=== PATIENT | male | born 1980 | race Caucasian/White ===

== ENCOUNTER 2019-01-25 10:07 | Inpatient (IN) | payer MEDICAID ==
[~2019-01-25] VITALS: Ht 180.3 cm; Wt 104.2 kg
[2019-01-25] VITALS (16 sets, daily range): BP systolic 138–155; BP diastolic 80–97
[~2019-01-25 10:07] MED LIST: NOCURR; SULF1TAB42 PO; VICOT PO
[2019-01-25 12:10] LABS: BASOPHILS % (AUTO) 0.5 % (0.0-2.0); EOSINOPHILS % (AUTO) 1.3 % (1.0-6.0); LYMPHOCYTES # (AUTO) 2.8 K/uL (1.0-4.8); LYMPHOCYTES % (AUTO) 25.8 % (22.0-44.0); MEAN CORPUSCULAR HEMOGLOBIN 28.6 pg (26.0-34.0); MEAN CORPUSCULAR HGB CONC 33.8 G/dL (31.0-37.0); MEAN CORPUSCULAR VOLUME 85 fL (80-100); MONOCYTES # (AUTO) 0.5 K/uL (0.1-1.0); MONOCYTES % (AUTO) 4.7 % (2.0-9.0); NEUTROPHILS # (AUTO) 7.2 K/uL (1.8-7.7); NEUTROPHILS % (AUTO) 67.7 % (40.0-70.0); PLATELET COUNT (AUTO) 330 K/uL (150-450); RED BLOOD CELL COUNT(AUTO) 2.04 MIL/uL (4.50-5.90)
[2019-01-25 12:19] LABS: HEMOGLOBIN 5.8 g/dL (13.5-17.5)
[2019-01-25 12:20] LABS: HEMATOCRIT 17.3 % (41-53)
[2019-01-25 12:25] LABS: ALBUMIN 1.1 g/dL (3.4-5.0); BILIRUBIN,TOTAL 0.3 mg/dL (0.1-1.0); CREATININE 15.53 mg/dL (0.60-1.30); TOTAL PROTEIN, SERUM 7.2 g/dL (6.4-8.2)
[2019-01-25 12:27] LABS: POTASSIUM 2.8 mmol/L (3.5-5.1)
[2019-01-25 12:28] LABS: APPEARANCE,URINE CLEAR (CLEAR); BILIRUBIN,URINE NEGATIVE (NEGATIVE); GLUCOSE, URINE (UA) 250 mg/dL (NEGATIVE); KETONES,URINE NEGATIVE (NEGATIVE); LEUKOCYTE ESTERASE ,URINE NEGATIVE (NEGATIVE); NITRATE,URINE NEGATIVE (NEGATIVE); OCCULT BLOOD,URINE SMALL (NEGATIVE); PROTEIN,URINE SEE CONFIRM (NEGATIVE); UROBILINOGEN,URINE 0.2 mg/dL (<=1.0)
[2019-01-25 12:48] LABS: SULFOSALICYLIC ACID,URINE 3+ (Negative)
[2019-01-25 12:49] LABS: BACTERIA,URINE Rare /HPF (None Seen); RBC,URINE 0-2 /HPF (0-2); SQUAMOUS EPITHELIAL CELL,UR Rare /LPF (None Seen)
[2019-01-25] MEDS ORDERED: SODIUM CHLORIDE 0.9% 1,000 ML IV ONE (13:15)
[2019-01-25 13:29] LABS: PROTHROMBIN TIME 10.4 SEC (9.4-11.6)
[2019-01-25] MEDS ORDERED: ONDANSETRON HCL 4 MG/2 ML VIAL IVP PRN (14:00)
[2019-01-25] MEDS ORDERED: 0.9% SODIUM CHLORIDE 10 ML SYRINGE IVP PRN (14:00)
[2019-01-25] MEDS ORDERED: ACETAMINOPHEN 325 MG TABLET PO PRN ×2 (14:00→20:15)
[2019-01-25] MEDS ORDERED: PANTOPRAZOLE SODIUM 80 MG in SODIUM CHLORIDE 0.9% 100 ML IV SCH (14:15)
[2019-01-25] MEDS ORDERED: POTASSIUM CHLORIDE 20 MEQ ER TABLET PO ONE (14:15)
[2019-01-25 15:12] LABS: AMPHET/METH SCREEN,URINE NEGATIVE (NEGATIVE); BARBITURATE SCREEN, URINE NEGATIVE (NEGATIVE); BENZODIAZEPINES SCREEN,URINE NEGATIVE (NEGATIVE); CANNABINOID SCREEN,URINE NEGATIVE (NEGATIVE); COCAINE SCREEN,URINE NEGATIVE (NEGATIVE); METHADONE SCREEN, URINE NEGATIVE (NEGATIVE); OPIATE SCREEN,URINE POSITIVE (NEGATIVE); PHENCYCLIDINE SCREEN,URINE NEGATIVE (NEGATIVE)
[2019-01-25 20:43] LABS: BASOPHILS % (AUTO) 0.7 % (0.0-2.0); EOSINOPHILS % (AUTO) 1.6 % (1.0-6.0); HEMATOCRIT 25.5 % (41-53); HEMOGLOBIN 8.6 g/dL (13.5-17.5); LYMPHOCYTES # (AUTO) 3.2 K/uL (1.0-4.8); LYMPHOCYTES % (AUTO) 35.3 % (22.0-44.0); MEAN CORPUSCULAR HEMOGLOBIN 29.3 pg (26.0-34.0); MEAN CORPUSCULAR HGB CONC 33.7 G/dL (31.0-37.0); MEAN CORPUSCULAR VOLUME 87 fL (80-100); MONOCYTES # (AUTO) 0.4 K/uL (0.1-1.0); MONOCYTES % (AUTO) 4.1 % (2.0-9.0); NEUTROPHILS # (AUTO) 5.3 K/uL (1.8-7.7); NEUTROPHILS % (AUTO) 58.3 % (40.0-70.0); PLATELET COUNT (AUTO) 315 K/uL (150-450); RED BLOOD CELL COUNT(AUTO) 2.94 MIL/uL (4.50-5.90); RED CELL DISTRIBUTION WIDTH 17.2 % (11.5-14.5)
[2019-01-25] MEDS: PANTOPRAZOLE SODIUM 40 MG/VIAL IVP SCH (20:46)
[2019-01-25] MEDS: DOCUSATE SODIUM 100 MG CAPSULE PO SCH (20:46)
[2019-01-25] MEDS: CefTRIAXone 1 GM/DEXTROSE 50 ML IV SCH (20:46)
[2019-01-25 21:09] LABS: CREATININE 15.23 mg/dL (0.60-1.30); MAGNESIUM 1.8 mg/dL (1.80-2.40); POTASSIUM 4.3 mmol/L (3.5-5.1)
[2019-01-26 04:25] VITALS: BP 145/87
[2019-01-26 05:58] LABS: BASOPHILS % (AUTO) 0.9 % (0.0-2.0); EOSINOPHILS % (AUTO) 1.6 % (1.0-6.0); HEMOGLOBIN 7.7 g/dL (13.5-17.5); LYMPHOCYTES # (AUTO) 3.1 K/uL (1.0-4.8); LYMPHOCYTES % (AUTO) 30.1 % (22.0-44.0); MEAN CORPUSCULAR HEMOGLOBIN 28.7 pg (26.0-34.0); MEAN CORPUSCULAR HGB CONC 33.6 G/dL (31.0-37.0); MEAN CORPUSCULAR VOLUME 86 fL (80-100); MONOCYTES # (AUTO) 0.5 K/uL (0.1-1.0); MONOCYTES % (AUTO) 4.8 % (2.0-9.0); NEUTROPHILS # (AUTO) 6.4 K/uL (1.8-7.7); NEUTROPHILS % (AUTO) 62.6 % (40.0-70.0); PLATELET COUNT (AUTO) 314 K/uL (150-450); RED BLOOD CELL COUNT(AUTO) 2.69 MIL/uL (4.50-5.90); RED CELL DISTRIBUTION WIDTH 16.9 % (11.5-14.5)
[2019-01-26 06:26] LABS: CREATININE 14.43 mg/dL (0.60-1.30); POTASSIUM 3.5 mmol/L (3.5-5.1)
[2019-01-26 07:08] LABS: CALCIUM, TOTAL 5.9 mg/dL (8.8-10.5)
[2019-01-26 07:21] VITALS: BP 137/77
[2019-01-26] MEDS ORDERED: CALCIUM GLUCONATE 1,000 MG in DEXTROSE 5%-WATER 50 ML IV ONE (07:45)
[2019-01-26] MEDS: DOCUSATE SODIUM 100 MG CAPSULE PO SCH ×2 (08:55→21:39)
[2019-01-26] MEDS: PANTOPRAZOLE SODIUM 40 MG/VIAL IVP SCH ×2 (08:58→21:40)
[2019-01-26] MEDS: EPOETIN ALFA 10,000 UNITS/ML VIAL SQ SCH (08:58)
[2019-01-26] MEDS ORDERED: EPOETIN ALFA 10,000 UNITS/ML VIAL SQ SCH (09:00)
[2019-01-26 11:06] VITALS: BP 132/78
[2019-01-26] MEDS ORDERED: SODIUM CHLORIDE 0.9% 1,000 ML IV ONE ×2 (11:55→12:15)
[2019-01-26] MEDS: VITAMIN B COMP/VIT C/FOLIC ACID CAPSULE PO SCH (14:13)
[2019-01-26 15:01] VITALS: BP 144/82
[2019-01-26 17:31] LABS: HEMATOCRIT 21.3 % (41-53); HEMOGLOBIN 7.2 g/dL (13.5-17.5); LYMPHOCYTES # (AUTO) 2.7 K/uL (1.0-4.8); LYMPHOCYTES % (AUTO) 36.2 % (22.0-44.0); MEAN CORPUSCULAR HEMOGLOBIN 28.5 pg (26.0-34.0); MEAN CORPUSCULAR HGB CONC 33.6 G/dL (31.0-37.0); MEAN CORPUSCULAR VOLUME 85 fL (80-100); MONOCYTES # (AUTO) 0.3 K/uL (0.1-1.0); MONOCYTES % (AUTO) 4.2 % (2.0-9.0); NEUTROPHILS # (AUTO) 4.2 K/uL (1.8-7.7); NEUTROPHILS % (AUTO) 56.6 % (40.0-70.0); PLATELET COUNT (AUTO) 312 K/uL (150-450); RED BLOOD CELL COUNT(AUTO) 2.52 MIL/uL (4.50-5.90); RED CELL DISTRIBUTION WIDTH 16.8 % (11.5-14.5)
[2019-01-26] MEDS: SODIUM BICARBONATE 100 MEQ in SODIUM CHLORIDE 0.45% 1,000 ML IV SCH (18:09)
[2019-01-26] MEDS: CALCIUM ACETATE 667 MG CAPSULE PO SCH (18:09)
[2019-01-26 18:27] LABS: CALCIUM, TOTAL 6.2 mg/dL (8.8-10.5); CREATININE 14.1 mg/dL (0.60-1.30); MAGNESIUM 1.7 mg/dL (1.80-2.40); POTASSIUM 3.5 mmol/L (3.5-5.1)
[2019-01-26 18:36] LABS: PHOSPHORUS 12.4 mg/dL (2.5-4.9)
[2019-01-26 20:03] VITALS: BP 143/86
[2019-01-26] MEDS: SULFAMETHOX/TRIMETH DS 800-160 MG/TABLET PO SCH (21:39)
[2019-01-26] MEDS: CefTRIAXone 1 GM/DEXTROSE 50 ML IV SCH (21:40)
[2019-01-27 00:22] VITALS: BP 152/80
[2019-01-27 04:53] VITALS: BP 141/88
[2019-01-27 05:52] LABS: BASOPHILS % (AUTO) 0.9 % (0.0-2.0); EOSINOPHILS % (AUTO) 2.6 % (1.0-6.0); HEMOGLOBIN 7.7 g/dL (13.5-17.5); LYMPHOCYTES # (AUTO) 2.9 K/uL (1.0-4.8); LYMPHOCYTES % (AUTO) 36.9 % (22.0-44.0); MEAN CORPUSCULAR HEMOGLOBIN 28.9 pg (26.0-34.0); MEAN CORPUSCULAR HGB CONC 33.7 G/dL (31.0-37.0); MEAN CORPUSCULAR VOLUME 86 fL (80-100); MONOCYTES # (AUTO) 0.4 K/uL (0.1-1.0); MONOCYTES % (AUTO) 5.1 % (2.0-9.0); NEUTROPHILS # (AUTO) 4.3 K/uL (1.8-7.7); NEUTROPHILS % (AUTO) 54.5 % (40.0-70.0); PLATELET COUNT (AUTO) 283 K/uL (150-450); RED BLOOD CELL COUNT(AUTO) 2.68 MIL/uL (4.50-5.90); RED CELL DISTRIBUTION WIDTH 16.8 % (11.5-14.5)
[2019-01-27] MEDS ORDERED: LIDOCAINE/PF 2% 5 ML VIAL INJ ONE (06:50)
[2019-01-27] MEDS ORDERED: PROPOFOL 1% 20 ML VIAL IVP ONE (06:50)
[2019-01-27 06:59] LABS: CALCIUM, TOTAL 6.1 mg/dL (8.8-10.5); CREATININE 12.72 mg/dL (0.60-1.30); MAGNESIUM 1.6 mg/dL (1.80-2.40); POTASSIUM 3.3 mmol/L (3.5-5.1)
[2019-01-27 07:28] VITALS: BP 140/79
[2019-01-27 07:31] LABS: PHOSPHORUS 11.6 mg/dL (2.5-4.9)
[2019-01-27] MEDS: CALCIUM ACETATE 667 MG CAPSULE PO SCH ×3 (08:07→17:12)
[2019-01-27] MEDS: VITAMIN B COMP/VIT C/FOLIC ACID CAPSULE PO SCH (08:07)
[2019-01-27] MEDS: PANTOPRAZOLE SODIUM 40 MG/VIAL IVP SCH ×2 (08:07→20:45)
[2019-01-27] MEDS: DOCUSATE SODIUM 100 MG CAPSULE PO SCH ×2 (08:07→20:45)
[2019-01-27] MEDS: SULFAMETHOX/TRIMETH DS 800-160 MG/TABLET PO SCH (08:08)
[2019-01-27] MEDS: SODIUM BICARBONATE 100 MEQ in SODIUM CHLORIDE 0.45% 1,000 ML IV SCH (08:08)
[2019-01-27] MEDS: POTASSIUM CHL 10 MEQ/WATER 50 ML IV SCH ×2 (08:36→09:42)
[2019-01-27] MEDS ORDERED: SODIUM CHLORIDE 0.9% 250 ML IV ONE (08:37)
[2019-01-27 11:23] VITALS: BP 122/88
[2019-01-27 15:30] VITALS: BP 145/90
[2019-01-27 18:41] LABS: CREATININE 12.3 mg/dL (0.60-1.30)
[2019-01-27 20:01] VITALS: BP 139/87
[2019-01-27] MEDS: CefTRIAXone 1 GM/DEXTROSE 50 ML IV SCH (20:45)
[2019-01-28 00:50] VITALS: BP 136/75
[2019-01-28] MEDS: SODIUM BICARBONATE 100 MEQ in SODIUM CHLORIDE 0.45% 1,000 ML IV SCH ×2 (01:26→21:05)
[2019-01-28 04:47] VITALS: BP 135/79
[2019-01-28 05:57] LABS: BASOPHILS % (AUTO) 0.9 % (0.0-2.0); EOSINOPHILS % (AUTO) 2.9 % (1.0-6.0); HEMATOCRIT 21.4 % (41-53); HEMOGLOBIN 7.1 g/dL (13.5-17.5); LYMPHOCYTES # (AUTO) 2.7 K/uL (1.0-4.8); LYMPHOCYTES % (AUTO) 36.4 % (22.0-44.0); MEAN CORPUSCULAR HEMOGLOBIN 28.5 pg (26.0-34.0); MEAN CORPUSCULAR HGB CONC 33.3 G/dL (31.0-37.0); MEAN CORPUSCULAR VOLUME 86 fL (80-100); MONOCYTES # (AUTO) 0.5 K/uL (0.1-1.0); MONOCYTES % (AUTO) 6.3 % (2.0-9.0); NEUTROPHILS % (AUTO) 53.5 % (40.0-70.0); PLATELET COUNT (AUTO) 284 K/uL (150-450); RED CELL DISTRIBUTION WIDTH 16.5 % (11.5-14.5)
[2019-01-28 05:59] LABS: PROTHROMBIN TIME 10.9 SEC (9.4-11.6)
[2019-01-28 06:42] LABS: CALCIUM, TOTAL 6.1 mg/dL (8.8-10.5); CREATININE 12.06 mg/dL (0.60-1.30); MAGNESIUM 1.5 mg/dL (1.80-2.40); PHOSPHORUS 8.9 mg/dL (2.5-4.9); POTASSIUM 3.1 mmol/L (3.5-5.1)
[2019-01-28 07:56] VITALS: BP 127/88
[2019-01-28] MEDS: PANTOPRAZOLE SODIUM 40 MG/VIAL IVP SCH ×2 (09:16→21:02)
[2019-01-28] MEDS: EPOETIN ALFA 10,000 UNITS/ML VIAL SQ SCH (09:16)
[2019-01-28] MEDS: VITAMIN B COMP/VIT C/FOLIC ACID CAPSULE PO SCH (09:16)
[2019-01-28] MEDS: DOCUSATE SODIUM 100 MG CAPSULE PO SCH ×2 (09:16→21:02)
[2019-01-28] MEDS: CALCIUM ACETATE 667 MG CAPSULE PO SCH ×3 (09:16→17:53)
[2019-01-28] MEDS ORDERED: MAGNESIUM SULFATE 2 GM/WATER 50 ML IV ONE (10:15)
[2019-01-28] MEDS: POTASSIUM CHL 10 MEQ/WATER 50 ML IV SCH ×2 (12:10→13:32)
[2019-01-28 12:18] VITALS: BP 138/81
[2019-01-28 16:10] VITALS: BP 139/81
[2019-01-28 19:47] LABS: CALCIUM, TOTAL 6.5 mg/dL (8.8-10.5); CREATININE 11.9 mg/dL (0.60-1.30); POTASSIUM 3.4 mmol/L (3.5-5.1)
[2019-01-28 19:52] LABS: MAGNESIUM 1.9 mg/dL (1.80-2.40); PHOSPHORUS 7.3 mg/dL (2.5-4.9)
[2019-01-28 20:11] VITALS: BP 146/93
[2019-01-28] MEDS: CefTRIAXone 1 GM/DEXTROSE 50 ML IV SCH (21:02)
[2019-01-29 00:47] VITALS: BP 141/81
[2019-01-29 04:23] VITALS: BP 134/75
[2019-01-29 06:57] LABS: CALCIUM, TOTAL 6.6 mg/dL (8.8-10.5); CREATININE 11.61 mg/dL (0.60-1.30); MAGNESIUM 1.9 mg/dL (1.80-2.40); PHOSPHORUS 7.9 mg/dL (2.5-4.9); POTASSIUM 3.2 mmol/L (3.5-5.1)
[2019-01-29 07:50] VITALS: BP 142/86
[2019-01-29] MEDS ORDERED: SODIUM CHLORIDE 0.9% 0 ML IV ONE (08:29)
[2019-01-29] MEDS: DOCUSATE SODIUM 100 MG CAPSULE PO SCH ×3 (08:34→21:42)
[2019-01-29] MEDS: VITAMIN B COMP/VIT C/FOLIC ACID CAPSULE PO SCH (08:34)
[2019-01-29] MEDS: CALCIUM ACETATE 667 MG CAPSULE PO SCH ×3 (08:34→18:59)
[2019-01-29] MEDS: PANTOPRAZOLE SODIUM 40 MG/VIAL IVP SCH ×2 (08:35→21:39)
[2019-01-29] MEDS: POTASSIUM CHL 10 MEQ/WATER 50 ML IV SCH ×2 (08:35→10:05)
[2019-01-29 11:43] VITALS: BP 147/89
[2019-01-29 12:01] LABS: CALCIUM, TOTAL 6.7 mg/dL (8.8-10.5); CREATININE 11.48 mg/dL (0.60-1.30); POTASSIUM 3.4 mmol/L (3.5-5.1)
[2019-01-29] MEDS ORDERED: POTASSIUM CHL 10 MEQ/WATER 50 ML IV ONE (13:30)
[2019-01-29] MEDS: SODIUM BICARBONATE 100 MEQ in SODIUM CHLORIDE 0.45% 1,000 ML IV SCH (15:06)
[2019-01-29 15:23] VITALS: BP 150/94
[2019-01-29 16:32] LABS: CALCIUM, TOTAL 6.9 mg/dL (8.8-10.5); CREATININE 11.36 mg/dL (0.60-1.30); POTASSIUM 3.9 mmol/L (3.5-5.1)
[2019-01-29 20:58] VITALS: BP 154/88
[2019-01-29] MEDS: CefTRIAXone 1 GM/DEXTROSE 50 ML IV SCH (21:39)
[2019-01-30] MEDS ORDERED: SODIUM BICARBONATE [ADULT] 8.4% 50 MEQ/50 ML SYRINGE IVP ONE (00:06)
[2019-01-30 00:22] VITALS: BP 147/87
[2019-01-30] MEDS: SODIUM BICARBONATE 100 MEQ in SODIUM CHLORIDE 0.45% 1,000 ML IV SCH (00:26)
[2019-01-30 04:29] VITALS: BP 158/94
[2019-01-30] MEDS: CALCIUM ACETATE 667 MG CAPSULE PO SCH ×2 (08:27→12:07)
[2019-01-30] MEDS: VITAMIN B COMP/VIT C/FOLIC ACID CAPSULE PO SCH (08:27)
[2019-01-30] MEDS: PANTOPRAZOLE SODIUM 40 MG/VIAL IVP SCH (08:27)
[2019-01-30] MEDS: EPOETIN ALFA 10,000 UNITS/ML VIAL SQ SCH (08:28)
[2019-01-30 10:10] VITALS: BP 153/91
[2019-01-30 13:20] VITALS: BP 146/82
[2019-01-30] MEDS ORDERED: FOLI1CAP2 PO (14:10)
[2019-01-30] MEDS ORDERED: PHOSLOC PO (14:10)
[2019-01-30] MEDS ORDERED: CLAR250T PO (14:11)
[2019-01-30] MEDS ORDERED: AMOX500T2 PO (14:12)
[2019-01-30] MEDS ORDERED: PANT40TA25 PO (14:13)
== END 2019-01-30 15:30 | disposition home or self-care (01) | DRG 469 ==
LOC: EMS 10:07 → 5N 15:49 → EMS 16:46 → 5S 17:25
PROVIDERS: ADMIT Internal Medicine; ATTEND Internal Medicine
PROC: 30233N1 Transfusion of Nonautologous Red Blood Cells into Peripheral Vein, Percutaneous Approach (ICD-10-PCS; 2019-01-25)
PROC: 0DB68ZX Excision of Stomach, Via Natural or Artificial Opening Endoscopic, Diagnostic (ICD-10-PCS; 2019-01-26)
PROC: 0DB98ZX Excision of Duodenum, Via Natural or Artificial Opening Endoscopic, Diagnostic (ICD-10-PCS; principal; 2019-01-26 12:30)
DX: N17.9 Acute kidney failure, unspecified (principal); E43 Unspecified severe protein-calorie malnutrition; E85.9 Amyloidosis, unspecified; D64.9 Anemia, unspecified; E87.6 Hypokalemia; N39.0 Urinary tract infection, site not specified; Z91.19 Patient's noncompliance with other medical treatment and regimen; F19.10 Other psychoactive substance abuse, uncomplicated; B19.20 Unspecified viral hepatitis C without hepatic coma; E83.39 Other disorders of phosphorus metabolism; E83.51 Hypocalcemia; E87.2 Acidosis; F17.200 Nicotine dependence, unspecified, uncomplicated; I12.0 Hypertensive chronic kidney disease with stage 5 chronic kidney disease or end stage renal disease; N18.6 End stage renal disease; Z68.32 Body mass index [BMI] 32.0-32.9, adult
CPT/HCPCS: 76770; 82271; 82565; 82728; 83540; 83550; 83735; 84100; 84520; 86160; 86162; 86850; 86900; 86901; 86920; 87081; 87086; 88305; 88312; 88313; 88342; 93306; 96365; 96366; 99291; C9113; G0378; J0610; J0696; J0885; J2704; J3475; J3480; J3490; J7030; J7050; J7060; P9016

== ENCOUNTER 2023-11-19 20:17 | Inpatient (IN) | payer MEDICAID, OTHER ==
[~2023-11-19] VITALS: Ht 177.8 cm; Wt 94.5 kg
[~2023-11-19 20:17] MED LIST changes: +AMOX500T2 PO; +CLAR250T39 PO; +FOLI1CAP2 PO; -NOCURR; +PANT-31 PO; +PHOSLOC PO; -SULF1TAB42 PO
[2023-11-19] MEDS ORDERED: SODIUM CHLORIDE 0.9% 2,200 ML IV ONE (22:30)
[2023-11-19 22:47] LABS: HEMATOCRIT 36.6 % (41-53); HEMOGLOBIN 12.1 g/dL (13.5-17.5); MEAN CORPUSCULAR HEMOGLOBIN 30.6 pg (26.0-34.0); MEAN CORPUSCULAR HGB CONC 33.1 G/dL (31.0-37.0); MEAN CORPUSCULAR VOLUME 93 fL (80-100); PLATELET COUNT (AUTO) 291 K/uL (150-450); RED BLOOD CELL COUNT(AUTO) 3.95 MIL/uL (4.50-5.90); RED CELL DISTRIBUTION WIDTH 17.5 % (11.5-14.5); WHITE BLOOD COUNT (AUTO) 27.6 K/uL (4.5-11.0)
[2023-11-19 23:05] LABS: LACTIC ACID 1.3 mmol/L (0.4-2.0)
[2023-11-19 23:15] LABS: BAND NEUTROPHILS % (MANUAL) 12 % (0-5); LYMPHOCYTES % (MANUAL) 3 % (22-44); MONOCYTES % (MANUAL) 3 % (2-9); SEGMENTED NEUTROPHILS % 82 % (40-70); TOTAL CELLS COUNTED 100
[2023-11-19 23:16] LABS: PLATELET MORPHOLOGY COMMENT LARGE PLTS PRESENT; RBC MORPHOLOGY COMMENT NORMAL RBC MORPH; WBC MORPHOLOGY TOXIC VACUOLATION
[2023-11-19] MEDS ORDERED: ZOLPIDEM TARTRATE 5 MG TABLET PO PRN (23:45)
[2023-11-19] MEDS ORDERED: ALBUTEROL SULFATE 2.5 MG/0.5 ML NEB SOLUTION NEB PRN (23:45)
[2023-11-19] MEDS ORDERED: BISACODYL 10 MG RECTAL RECTAL SUPPOSITORY PR PRN (23:45)
[2023-11-19] MEDS ORDERED: ACETAMINOPHEN 325 MG TABLET PO PRN (23:45)
[2023-11-19] MEDS ORDERED: PIPERACILLIN/TAZO 3.375 GM/D5W 50 ML IV ONE (23:45)
[2023-11-19] MEDS ORDERED: MAGNESIUM HYDROXIDE SUSPENSION 30 ML UDCUP PO PRN (23:45)
[2023-11-19] MEDS ORDERED: ONDANSETRON HCL 4 MG/2 ML VIAL IVP PRN (23:45)
[2023-11-19] MEDS ORDERED: IPRATROPIUM BROMIDE 0.5 MG/2.5 ML NEB SOLUTION NEB PRN (23:45)
[2023-11-20] VITALS (12 sets, daily range): BP systolic 96–132; BP diastolic 55–74; PULSE 69–95; RESP 18; TEMP 98.4–98.9
[2023-11-20] MEDS ORDERED: VANCOMYCIN HCL 1.5 GM in DEXTROSE 5%-WATER 250 ML IV ONE ×2
[2023-11-20 00:09] LABS: ALBUMIN 2.3 g/dL (3.4-5.0); BILIRUBIN,TOTAL 0.6 mg/dL (0.1-1.0); CALCIUM, TOTAL 8.5 mg/dL (8.8-10.5); CREATININE 6.18 mg/dL (0.60-1.30); POTASSIUM 4.3 mmol/L (3.5-5.1); TOTAL PROTEIN, SERUM 8.1 g/dL (6.4-8.2)
[2023-11-20 00:17] LABS: TROPONIN I-HIGH SENSITIVITY 149 ng/L (<76)
[2023-11-20] MEDS ORDERED: VANCOMYCIN HCL 1 GM in DEXTROSE 5%-WATER 250 ML IV PRN (00:45)
[2023-11-20 01:02] LABS: COVID AG,FIA SOURCE NASAL SWAB
[2023-11-20] MEDS: HEPARIN SODIUM,PORCINE 5,000 UNITS/ML VIAL SQ SCH ×3 (01:14→15:31)
[2023-11-20 01:25] LABS: INFLUENZA TYPE A NEGATIVE FOR TYPE A (NEGATIVE); INFLUENZA TYPE B NEGATIVE FOR TYPE B (NEGATIVE); SARS-COV2 (COVID) ANTIGEN,FIA Negative (Negative)
[2023-11-20] MEDS: MORPHINE SULFATE 2 MG/ML SYRINGE IVP PRN (01:29)
[2023-11-20 05:31] LABS: HEMATOCRIT 35.5 % (41-53); HEMOGLOBIN 11.9 g/dL (13.5-17.5); MEAN CORPUSCULAR HEMOGLOBIN 31.2 pg (26.0-34.0); MEAN CORPUSCULAR HGB CONC 33.6 G/dL (31.0-37.0); MEAN CORPUSCULAR VOLUME 93 fL (80-100); PLATELET COUNT (AUTO) 258 K/uL (150-450); RED BLOOD CELL COUNT(AUTO) 3.83 MIL/uL (4.50-5.90); RED CELL DISTRIBUTION WIDTH 16.9 % (11.5-14.5)
[2023-11-20 05:38] LABS: ALBUMIN 2.2 g/dL (3.4-5.0); BILIRUBIN,TOTAL 0.6 mg/dL (0.1-1.0); CALCIUM, TOTAL 8.7 mg/dL (8.8-10.5); CREATININE 6.6 mg/dL (0.60-1.30)
[2023-11-20] MEDS ORDERED: PIPERACILLIN/TAZO 3.375 GM/D5W 50 ML IV SCH (06:00)
[2023-11-20 06:32] LABS: BAND NEUTROPHILS % (MANUAL) 13 % (0-5); BASOPHILS % (MANUAL) 1 % (0-2); LYMPHOCYTES % (MANUAL) 3 % (22-44); MONOCYTES % (MANUAL) 4 % (2-9); SEGMENTED NEUTROPHILS % 79 % (40-70); TOTAL CELLS COUNTED 100
[2023-11-20] MEDS ORDERED: SODIUM CHLORIDE 0.9% 250 ML IV ONE ×2 (07:48→09:47)
[2023-11-20] MEDS: PIPERACILLIN SODIUM/TAZOBACTAM 2.25 GM in DEXTROSE 5%-WATER 50 ML IV SCH ×2 (08:35→21:16)
[2023-11-20] MEDS: PANTOPRAZOLE SODIUM 40 MG DR TABLET PO SCH (09:44)
[2023-11-20] MEDS ORDERED: LIDOCAINE/PF 1% 2 ML VIAL IM ONE (12:00)
[2023-11-20] MEDS: CALCIUM ACETATE 667 MG CAPSULE PO SCH ×2 (12:49→18:00)
[2023-11-20] MEDS ORDERED: SODIUM CHLORIDE 0.9% 1,000 ML ONE (17:21)
[2023-11-21] VITALS (12 sets, daily range): BP systolic 93–117; BP diastolic 50–82; PULSE 70–80; RESP 16–18; TEMP 97.8–98.3
[2023-11-21] MEDS: HEPARIN SODIUM,PORCINE 5,000 UNITS/ML VIAL SQ SCH ×3 (00:37→16:33)
[2023-11-21] MEDS: PIPERACILLIN SODIUM/TAZOBACTAM 2.25 GM in DEXTROSE 5%-WATER 50 ML IV SCH ×3 (03:48→21:45)
[2023-11-21 06:55] LABS: BASOPHILS % (AUTO) 0.8 % (0.0-2.0); EOSINOPHILS % (AUTO) 0.4 % (1.0-6.0); HEMATOCRIT 34.7 % (41-53); HEMOGLOBIN 11.4 g/dL (13.5-17.5); LYMPHOCYTES # (AUTO) 0.8 K/uL (1.0-4.8); LYMPHOCYTES % (AUTO) 9.1 % (22.0-44.0); MEAN CORPUSCULAR HGB CONC 32.9 G/dL (31.0-37.0); MEAN CORPUSCULAR VOLUME 94 fL (80-100); MONOCYTES # (AUTO) 0.7 K/uL (0.1-1.0); MONOCYTES % (AUTO) 7.5 % (2.0-9.0); NEUTROPHILS # (AUTO) 7.6 K/uL (1.8-7.7); NEUTROPHILS % (AUTO) 82.2 % (40.0-70.0); PLATELET COUNT (AUTO) 242 K/uL (150-450); RED BLOOD CELL COUNT(AUTO) 3.69 MIL/uL (4.50-5.90); RED CELL DISTRIBUTION WIDTH 16.5 % (11.5-14.5); WHITE BLOOD COUNT (AUTO) 9.2 K/uL (4.5-11.0)
[2023-11-21 07:08] LABS: BILIRUBIN,TOTAL 0.4 mg/dL (0.1-1.0); CALCIUM, TOTAL 8.8 mg/dL (8.8-10.5); CREATININE 5.06 mg/dL (0.60-1.30); PHOSPHORUS 7.3 mg/dL (2.5-4.9); POTASSIUM 4.1 mmol/L (3.5-5.1); TOTAL PROTEIN, SERUM 7.6 g/dL (6.4-8.2)
[2023-11-21] MEDS: PANTOPRAZOLE SODIUM 40 MG DR TABLET PO SCH (07:52)
[2023-11-21] MEDS: CALCIUM ACETATE 667 MG CAPSULE PO SCH ×3 (07:52→18:00)
[2023-11-21] MEDS: HYDROCODONE/ACETAMINOPHEN 5-325 MG TABLET PO PRN ×3 (07:52→16:34)
[2023-11-21] MEDS: FOLIC ACID/VIT B COMPLEX AND C TABLET PO SCH (07:52)
[2023-11-21] MEDS: MORPHINE SULFATE 2 MG/ML SYRINGE IVP PRN ×2 (15:22→18:00)
[2023-11-21] MEDS ORDERED: VANCOMYCIN 1GM/WATER(PEG/NADA) 200 ML IV ONE (20:00)
[2023-11-22 00:29] VITALS: BP 130/80; PULSE 77; RESP 18; TEMP 97.5
[2023-11-22] MEDS: HEPARIN SODIUM,PORCINE 5,000 UNITS/ML VIAL SQ SCH ×3 (00:54→17:42)
[2023-11-22 03:43] VITALS: BP 109/66; PULSE 73; RESP 18; TEMP 97.8
[2023-11-22] MEDS: PIPERACILLIN SODIUM/TAZOBACTAM 2.25 GM in DEXTROSE 5%-WATER 50 ML IV SCH ×2 (04:25→11:42)
[2023-11-22 08:00] VITALS: BP 123/79; PULSE 77; RESP 18; TEMP 98
[2023-11-22] MEDS: FOLIC ACID/VIT B COMPLEX AND C TABLET PO SCH (09:25)
[2023-11-22] MEDS: PANTOPRAZOLE SODIUM 40 MG DR TABLET PO SCH (09:25)
[2023-11-22] MEDS: CALCIUM ACETATE 667 MG CAPSULE PO SCH ×3 (09:25→17:42)
[2023-11-22 10:17] LABS: BASOPHILS % (AUTO) 0.9 % (0.0-2.0); EOSINOPHILS % (AUTO) 1.9 % (1.0-6.0); HEMATOCRIT 37.3 % (41-53); HEMOGLOBIN 11.9 g/dL (13.5-17.5); LYMPHOCYTES # (AUTO) 1.2 K/uL (1.0-4.8); LYMPHOCYTES % (AUTO) 23.3 % (22.0-44.0); MEAN CORPUSCULAR HEMOGLOBIN 29.9 pg (26.0-34.0); MEAN CORPUSCULAR HGB CONC 31.9 G/dL (31.0-37.0); MEAN CORPUSCULAR VOLUME 94 fL (80-100); MONOCYTES # (AUTO) 0.4 K/uL (0.1-1.0); MONOCYTES % (AUTO) 8.8 % (2.0-9.0); NEUTROPHILS # (AUTO) 3.2 K/uL (1.8-7.7); NEUTROPHILS % (AUTO) 65.1 % (40.0-70.0); PLATELET COUNT (AUTO) 248 K/uL (150-450); RED BLOOD CELL COUNT(AUTO) 3.98 MIL/uL (4.50-5.90); RED CELL DISTRIBUTION WIDTH 16.7 % (11.5-14.5)
[2023-11-22 10:42] LABS: BILIRUBIN,TOTAL 0.4 mg/dL (0.1-1.0); CALCIUM, TOTAL 9.5 mg/dL (8.8-10.5); CREATININE 4.7 mg/dL (0.60-1.30); POTASSIUM 4.4 mmol/L (3.5-5.1); TOTAL PROTEIN, SERUM 8.1 g/dL (6.4-8.2)
[2023-11-22 12:00] VITALS: BP 119/77; PULSE 70; RESP 18; TEMP 98.1
[2023-11-22 16:00] VITALS: BP 128/79; PULSE 72; RESP 18; TEMP 97.9
== END 2023-11-22 20:00 | disposition left against medical advice (07) | DRG 720 ==
LOC: EMS 20:22 → 5S 11-20 06:16
PROVIDERS: ADMIT Hospitalist; ATTEND Hospitalist
DX: A41.9 Sepsis, unspecified organism (principal); J18.9 Pneumonia, unspecified organism; N18.6 End stage renal disease; D63.1 Anemia in chronic kidney disease; E83.39 Other disorders of phosphorus metabolism; I50.9 Heart failure, unspecified; N25.81 Secondary hyperparathyroidism of renal origin; F17.210 Nicotine dependence, cigarettes, uncomplicated; F11.10 Opioid abuse, uncomplicated
CPT/HCPCS: 71045; 80053; 80202; 82550; 83605; 84100; 84484; 85025; 87040; 87077; 87081; 87205; 87340; 87804; 90935; 93005; 99285; G0378; J1644; J2270; J2405; J2543; J3370; J3490; J7030; J7050; J7060; Q9967; 36415-L1; 36415-TC